=== PATIENT | female | born 1970 | race Caucasian/White ===

== ENCOUNTER 2021-07-08 18:40 | Emergency (ER) | payer BC ==
[2021-07-08] MEDS ORDERED: Phenazopyridine 95 MG Tab PO STA ×2 (18:48→18:52)
[2021-07-08] MEDS ORDERED: Phenazopyridine 95 MG Tab ONE (19:00)
[2021-07-08] MEDS ORDERED: Cephalexin 500 MG Cap PO ONE (19:17)
[2021-07-08] MEDS ORDERED: Ciprofloxacin 500 MG Tab PO ONE (19:21)
[2021-07-08] MEDS ORDERED: Take Home: Ciprofloxacin 500 MG Tab, 2 Tab Pack PO ONE (19:22)
[2021-07-08] MEDS: Take Home: Phenazopyridine 95 MG Tab, 4 Tab Pack ONE ×2 (19:46→19:49)
== END 2021-07-08 19:58 | disposition home or self-care (01) ==
LOC: VM.ED 18:40
DX: N39.0 Urinary tract infection, site not specified (principal); E11.9 Type 2 diabetes mellitus without complications; Z88.2 Allergy status to sulfonamides; Z91.041 Radiographic dye allergy status; Z88.0 Allergy status to penicillin; Z88.5 Allergy status to narcotic agent; Z88.1 Allergy status to other antibiotic agents
CPT/HCPCS: 81001; 87086; 87088; 87186; 99283; 99284; A9270-GY